=== PATIENT | female | born 1990 | race Caucasian/White ===

== ENCOUNTER → 2019-09-17 16:44 | Outpatient (BNVA) | payer OTHER, SELFPAY | PROVIDERS: Family Provider Family Medicine; PCP Obstetrics & Gynecology; Visit Provider Psychiatry & Neurology Psychiatry | DX: F53.0 Postpartum depression (principal); O99.345 Other mental disorders complicating the puerperium | CPT/HCPCS: 80053; 84439; 84443; 85007; 85027 ==

== ENCOUNTER → 2020-08-13 07:56 | Outpatient (BNVA) | payer SELFPAY | PROVIDERS: Family Provider Family Medicine; PCP Obstetrics & Gynecology; Visit Provider Psychiatry & Neurology Psychiatry | DX: F31.81 Bipolar II disorder (principal); F60.3 Borderline personality disorder | CPT/HCPCS: 99213 ==